=== PATIENT | male | born 1945 | race Caucasian/White ===

== ENCOUNTER 2019-11-30 10:27 | Outpatient (CLI) | payer MEDICARE, BC ==
[2019-11-30 11:04] LABS: Estimated GFR-MDRD - POC Greater than 90
--- NOTE | 2019-11-30 11:44 | CT ---
CT OF THE ABDOMEN AND PELVIS WITH CONTRAST: COMPARISON: None. HISTORY: Right inguinal hernia. The patient is normally able to reduce it, but cannot reduce it at this time. TECHNIQUE: Multiple contiguous axial images were obtained in a CT of the abdomen and pelvis with contrast. P.o. contrast administered. Sagittal and coronal reformats were performed. FINDINGS: Calcified gallstones are seen in the dependent gallbladder. The liver, right kidney, adrenal glands, spleen, and pancreas are unremarkable. There is a 1.6 cm hypodensity emanating from the left kidney which likely represents a cyst. There is a small amount of ascites. Scattered diverticula are seen in the colon . The small bowel i s normal in caliber. The appendix is normal. The patient has bilateral inguinal hernias. The right inguinal hernia contains a large amount of ome ntal fat and fluid. The neck of the right hernia measures 5.0 cm in width. The left inguinal hernia contains colon which is nonobstructed. The neck of this hernia measures 3.9 cm in size. No abdominal or pelvic lymphadenopathy are seen. Atherosclerotic calcifications are seen in the aort a. Degenerative changes are seen in the spine. The visualized inferior thorax is unremarkable. IMPRESSION: 1. Bilateral inguinal hernias, right greater than left. However, the left inguinal hernia contains bowel and the right inguinal hernia only contains fat at this time. 2. Left renal cyst. 3. Cholelithiasis. 3. Small ascites. 4. Diverticulosis. POS: TPC
--- NOTE | 2019-11-30 12:55 | RAD ---
EXAM: Two views chest PROVIDED CLINICAL HISTORY: Preop COMPARISON: None FINDINGS: Cardiac and mediastinal silhouette appears within normal limits. Lungs appear free of significant opa city. No pleural fluid or pneumothorax apparent. Calcified granulomata are redemonstrated, as is atherosclerosis. Degenerative changes seen involving the thoracic spine. IMPRESSION: No evidence for an acute cardiopulmonary process.
[2019-11-30] MEDS ORDERED: Iopamidol 370 76% 100 ML VIAL ONE (13:36)
--- NOTE | 2019-11-30 16:57 | EKG ---
Test Reason : Blood Pressure : / mmHG Vent. Rate : 095 BPM Atrial Rate : 095 BPM P-R Int : 158 ms QRS Dur : 100 ms QT Int : 360 ms P-R-T Axes : 060 106 070 degrees QTc Int : 452 ms Normal sinus rhythm with sinus arrhythmia Rightward axis Incomplete right bundle branch block Nonspecific ST abnormality Abnormal ECG When compared with ECG of 15-JAN-1997 14:26, No significant change was found Confirmed by DR. Klaudia ADAIR ([id number]) on 11/30/2019 4:56:41 PM Referred By: GLORIA Confirmed By:DR. Klaudia ADAIR
== END 2019-11-30 10:28 | disposition home or self-care (01) ==
LOC: CT 10:27
PROVIDERS: ATTEND Specialist
DX: K40.00 Bilateral inguinal hernia, with obstruction, without gangrene, not specified as recurrent (principal); N28.1 Cyst of kidney, acquired; K80.20 Calculus of gallbladder without cholecystitis without obstruction; R18.8 Other ascites; K57.30 Diverticulosis of large intestine without perforation or abscess without bleeding
CPT/HCPCS: 71046; 74177; 82565; 93005; 93010; Q9967

== ENCOUNTER 2019-12-01 10:24 | Day surgery (SDC) | payer MEDICARE, BC ==
[2019-11-30 12:09] VITALS: BMI 25.1
[2019-12-01] MEDS ORDERED: Acetaminophen 500 MG TAB ONE (11:22)
[2019-12-01] MEDS ORDERED: Ketorolac Tromethamine 30 MG/ML VIAL ONE (11:22)
[2019-12-01 11:40] LABS: #Basophils 0.1 thou/uL (0.0-0.2); #Eosinphils 0.2 thou/uL (0.0-0.7); #Lymphocytes 1.4 thou/uL (1.20-3.40); #Monocytes 0.7 thou/uL (0.11-0.59); #Neutrophils 6.1 thou/uL (1.40-6.50); %Basophils 0.8 % (0.0-1.0); %Eosinophils 2.8 % (0.0-10.0); %Lymphocytes 16.7 % (21.0-51.0); %Monocytes 8.6 % (0.0-10.0); %Neutrophils 71.2 % (42.0-75.0); Hemoglobin 12.2 g/dL (14.0-18.0); Mean Corpuscular HGB CONC 33.3 g/dL (32.0-36.0); Mean Corpuscular Hemoglobin 31.5 pg (27.0-31.0); Mean Corpuscular Volume 94.7 fL (78.0-98.0); Mean Platelet Volume 8.4 fL (7.4-10.4); Platelet Count 233 thou/uL (130-400); RBC Distribution Width 12.3 % (11.5-14.5); Red Blood Cell (RBC) Count 3.86 mill/uL (4.70-6.10); White Blood Cell (WBC) Count 8.6 thou/uL (4.8-10.8)
[2019-12-01] MEDS ORDERED: Rocuronium Bromide 10 MG/ML (10ML VIAL) ONE (11:58)
[2019-12-01] MEDS ORDERED: PHENYLEPHRINE-NS 100 MCG/ML 10 ML SYRINGE ONE (11:58)
[2019-12-01] MEDS ORDERED: Lidocaine 1% PF 5 ML VIAL ONE (11:58)
[2019-12-01] MEDS ORDERED: Glycopyrrolate 0.2 MG/ML 5 ML SYRINGE ONE (11:58)
[2019-12-01] MEDS ORDERED: EPHEDRINE 25 MG/5 ML SYRINGE ONE (11:58)
[2019-12-01] MEDS ORDERED: PROPOFOL 200 MG/20 ML VIAL ONE (11:58)
[2019-12-01] MEDS ORDERED: Bupivacaine 0.25% HCL 30 ML VIAL ONE ×3 (11:59→12:19)
[2019-12-01] MEDS ORDERED: EPINEPHrine 1 MG/ML AMP ONE (12:00)
[2019-12-01 12:10] LABS: Anion Gap 14 mmol/L (10-20); BUN (Urea Nitrogen) 13 mg/dL (8.4-25.7); Calc. Creatinine Clearance 96 mL/min (70-130); Carbon Dioxide 24 mmol/L (23-31); Chloride 104 mmol/L (98-107); Estimated GFR-MDRD Greater than 90; Glucose 117 mg/dL (83-110); Sodium 138 mmol/L (136-145)
[2019-12-01] MEDS ORDERED: Fentanyl 100 MCG/2 ML VIAL ONE (12:26)
[2019-12-01] MEDS ORDERED: Lidocaine 2% PF 5 ML VIAL ONE (12:28)
[2019-12-01] MEDS ORDERED: PROPOFOL 20 ML ONE (12:28)
[2019-12-01] MEDS ORDERED: HYDROcodone/Acetaminophen 5/325 mg Tablet ONE (15:32)
--- NOTE | 2019-12-02 00:13 | OP ---
DATE OF PROCEDURE: 12/01/2019 PREOPERATIVE DIAGNOSIS: Enormous incarcerated right inguinal hernia. POSTOPERATIVE DIAGNOSIS: Enormous incarcerated right inguinal hernia. OPERATION PERFORMED: Complex repair of incarcerated right inguinal hernia with partial omentectomy and right orchidectomy. ANESTHESIA: General endotracheal. INDICATIONS: Patient is a 74-year-old white male. He had presented to my office two days ago complaining of a large right inguinal hernia. He had noted inguinal hernias for the past several years, but stated he had had sudden rapid enlargement of the right inguinal hernia that was descended well down into the scrotum. CT scan showed that this was filled with omentum and fluid. It was entirely unreducible. He is taken to the operative room at this time for repair. Due to the size of this, I told him of the possibility and even likelihood of requiring an orchiectomy. DESCRIPTION OF OPERATION: Informed consent was obtained. Patient was taken to the operating room, where general endotracheal anesthesia obtained. Patient was in supine position. Abdomen, groin, and scrotum were prepped with ChloraPrep and draped in a sterile fashion. Local anesthetic was infiltrated using 0.25% Marcaine with epinephrine. An oblique right inguinal incision was created. Dissection was carried through skin and subcutaneous tissue. The hernia sac was encountered first. With lateral dissection, I was able to identify fascia, which was opened parallel to its fiber so as to open the external ring. All of the tissues involved the external ring were extraordinarily inflamed and edematous. These were all very thickened and adhesive as though they have been present for a lengthy period of time. I was, with difficulty, able to dissect around the cord structures and controlled them with a Violeta drain. Due to the severe thickening and edema, I could make out no definite tissue planes. I therefore began dissecting into the cord structures. I dissected down until I entered the hernia sac. A large volume of fluid was aspirated from within this. There was noted to be omentum. At the level which incarceration of the omentum had occurred, there was darkened and thickened tissue. I divided the omentum that had been present down the scrotum between clamps and 2-0 silk ties and passed this part of the omentum off the field. All of the fluid within the hernia sac was aspirated as well. This was over 300 mL. The remaining omental structures were able to be reduced intraabdominal. Digital dissection revealed no other concerning abnormalities within the abdomen. The hernia sac was then dissected. I could not cleanly separate this from the cord structures due to the incredible edema and inflammation and I felt it was therefore necessary to divide the cord structures in order to dissect this appropriately. The cord was identified and divided between clamps and 2-0 silk ties. The remainder of the hernia sac was divided circumferentially. I then closed the hernia sac with a pursestring suture of #1 Prolene. I attempted to use the smaller suture and broke this when I tried to tie it. I then dissected around the base of the hernia contents at the defect and was able to mobilize these tissues down to the preperitoneal space. I was able to invert the hernia sac into the preperitoneal space uneventfully. Attention was then turned to the distal contents within the scrotum. I dissected the hernia sac and cord structures as well as the testicle out of the scrotum using electrocautery. These were all passed off as a surgical specimen. Meticulous hemostasis was obtained. I returned my attention to the hernia. I obtained an extra-large mesh plug. This was secured to the apex of the hernia sac and the complex was inverted into the preperitoneal space. I fixed the plug to the surrounding fascial structures with interrupted sutures of 2-0 Vicryl. I then imbricated the fascia over the plug with three or four interrupted sutures of 2-0 Vicryl. A mesh patch was then obtained, placed within the floor of the inguinal canal. It was secured to the pubic tubercle with a suture of 2-0 Vicryl. I then placed a running suture of 2-0 Vicryl along the inferior edge of the patch and secured this to the shelving edge of the inguinal ligament. The superior aspect of the patch secured to the anterior fascia of the internal oblique with several interrupted sutures of 2-0 Vicryl to keep it snug across the floor of the canal. The fascia was then closed with a running suture of 3-0 Vicryl. Additional local anesthetic was infiltrated into the wound. A #19 round fluted drain was brought out superiorly and laterally and tunneled down into the large space in the scrotum. It was secured at skin exit site with 3-0 nylon suture. The wound was copiously irrigated and all irrigant was aspirated. The Vignesh's fascia was approximated with interrupted sutures of 3-0 Monocryl and the skin edges approximated with a running subcuticular suture of 4-0 Monocryl. Dermabond was placed over the incision. A sterile occlusive dressing was applied over the drain exit site. There were no complications. Blood loss was minimal. Patient tolerated the procedure well and was taken to recovery room in stable condition. Job ID: [id number]
== END 2019-12-01 17:10 | disposition home or self-care (01) ==
LOC: EEVIPCON → SDC 10:24
PROVIDERS: ATTEND Specialist
PROC: 0YU50JZ Supplement Right Inguinal Region with Synthetic Substitute, Open Approach (ICD-10-PCS; principal; 2019-12-01)
PROC: 0VT90ZZ Resection of Right Testis, Open Approach (ICD-10-PCS; 2019-12-01)
DX: K40.30 Unilateral inguinal hernia, with obstruction, without gangrene, not specified as recurrent (principal); N50.0 Atrophy of testis; N50.1 Vascular disorders of male genital organs; K40.90 Unilateral inguinal hernia, without obstruction or gangrene, not specified as recurrent; E11.9 Type 2 diabetes mellitus without complications; I10 Essential (primary) hypertension; E78.5 Hyperlipidemia, unspecified; M10.9 Gout, unspecified; Z87.891 Personal history of nicotine dependence; Z79.82 Long term (current) use of aspirin; Z79.84 Long term (current) use of oral hypoglycemic drugs; Z79.899 Other long term (current) drug therapy; Z88.0 Allergy status to penicillin
CPT/HCPCS: 49507; 54520; 80048; 85025; 88305; C1781; 36415; J0171; J0690; J1885; J2001; J2704; J3010; S0020

== ENCOUNTER 2022-12-29 08:31 | Day surgery (SDC) | payer MEDICARE, BC ==
[2022-12-28 10:21] VITALS: BMI 22.9
[2022-12-29] MEDS ORDERED: Acetaminophen 500 MG TAB ONE (09:48)
[2022-12-29] MEDS ORDERED: Ketorolac Tromethamine 30 MG/ML VIAL ONE (09:48)
[2022-12-29] MEDS ORDERED: CEFAZOLIN 2 GM VIAL ONE (10:07)
[2022-12-29] MEDS ORDERED: Sodium Chloride 0.9% 100 ML ONE (10:07)
[2022-12-29] MEDS ORDERED: Lidocaine 1% MPF 2 ML VIAL ONE (10:11)
[2022-12-29] MEDS ORDERED: SUGAMMADEX SODIUM 200 MG/2 ML VIAL ONE (11:21)
[2022-12-29] MEDS ORDERED: Fentanyl 250 MCG/5 ML VIAL ONE (11:21)
[2022-12-29] MEDS ORDERED: Rocuronium Bromide 10 MG/ML (10ML VIAL) ONE (11:33)
[2022-12-29] MEDS ORDERED: Phenylephrine 10 MG/ML VIAL ONE (11:33)
[2022-12-29] MEDS ORDERED: Lidocaine 1% PF 5 ML VIAL ONE (11:33)
[2022-12-29] MEDS ORDERED: PROPOFOL 200 MG/20 ML VIAL ONE (11:33)
[2022-12-29] MEDS ORDERED: Dexamethasone 20 MG/5 ML VIAL ONE (11:33)
[2022-12-29] MEDS ORDERED: Ondansetron PF 4 MG/2 ML Vial ONE (11:33)
[2022-12-29] MEDS ORDERED: Bupivacaine/Epinephrine 0.25% 30 ML VIAL ONE ×2 (11:37→13:19)
== END 2022-12-29 15:12 | disposition home or self-care (01) ==
LOC: SDC 08:31
PROVIDERS: ATTEND Specialist
PROC: 0YU64JZ Supplement Left Inguinal Region with Synthetic Substitute, Percutaneous Endoscopic Approach (ICD-10-PCS; principal; 2022-12-29)
PROC: 8E0W4CZ Robotic Assisted Procedure of Trunk Region, Percutaneous Endoscopic Approach (ICD-10-PCS; 2022-12-29)
DX: K40.90 Unilateral inguinal hernia, without obstruction or gangrene, not specified as recurrent (principal); I10 Essential (primary) hypertension; E78.5 Hyperlipidemia, unspecified; E11.9 Type 2 diabetes mellitus without complications; M10.9 Gout, unspecified; Z88.0 Allergy status to penicillin; Z87.891 Personal history of nicotine dependence; Z79.84 Long term (current) use of oral hypoglycemic drugs; Z79.82 Long term (current) use of aspirin; Z79.899 Other long term (current) drug therapy
CPT/HCPCS: C1781; J1100; J1885; J2370; J2405; J2704; J3010; J3490